=== PATIENT | female | born 1995 | race Caucasian/White ===

== ENCOUNTER 2016-04-27 23:26 | Inpatient (IN) ==
[2016-04-27] MEDS ORDERED: *HR* LORazepam 1 MG TABLET PO PRN (23:39)
[2016-04-27] MEDS ORDERED: Ibuprofen 400 MG TABLET PO PRN (23:39)
[2016-04-27] MEDS ORDERED: Mag Hydrox/Al Hydrox/Simeth 30 ML UDC PO PRN (23:39)
[2016-04-27] MEDS ORDERED: MOM Conc 10 ML UD.LIQ PO PRN (23:39)
[2016-04-27] MEDS ORDERED: traZODone 50 MG TABLET PO PRN (23:39)
[2016-04-27] MEDS ORDERED: hydrOXYzine pamoate 25 MG CAPSULE PO PRN (23:39)
[2016-04-27] MEDS ORDERED: *HR* LORazepam 2 MG/ML VIAL IM PRN (23:39)
[2016-04-27] MEDS ORDERED: Haloperidol Lactate 5 MG/ML VIAL IM PRN (23:39)
[2016-04-28] MEDS: Nicotine 21 MG PATCH.TD24 TD SCH (09:12)
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
[2016-04-29] MEDS: Nicotine 21 MG PATCH.TD24 TD SCH (09:13)
[2016-04-29] MEDS: Nicotine 2 MG GUM BC PRN ×2 (09:20→13:27)
--- NOTE | 2016-04-29 13:00 | Psychiatry Progress Note ---
Date of Encounter: 04/29/16 Time of Encounter: 12:39 Subjective Interval history: Patient seen and interviewed history and physical examination reviewed. Patient is reporting of feeling depressed and anxious. Still endorsing urges and impulses to harm and hurt herself. Unable to verbalize a safety plan. Patient has given a lot of thought about taking medication and after discussing at length about the risk benefit side effects and consequences of not taking medications patient has decided to try antidepressant. Patient is attending groups participating in activities. Encouraged to start working on a safety plan. Review of Systems Psychiatric: Reports: depression, anxiety, suicidal ideation Objective: Exam Patient orientation: Yes Person, Yes Time, Yes Place Level of alertness: Alert Patient appearance: Appropriate, Well Groomed Behavior: calm, cooperative Psychomotor activity: Normal Eye contact: Maintains Eye Contact Mood description: Depressed, Anxious Affect description: congruent with mood, full range Speech pattern: Normal rate, Normal rhythm, Normal tone Speech volume: Normal Thought process: Linear, Goal Oriented Thought content: Yes Suicidal ideation, No Homicidal ideation, No Overt delusions Perceptual disturbances: No Auditory hallucinations, No Visual hallucinations Judgment: Limited Insight: Partial Results - Vital Signs Vital Signs: Temp Pulse Resp BP 98.4 F 69 18 95/58 04/29/16 09:00 04/29/16 09:00 04/29/16 09:00 04/29/16 09:00 Assessment and Plan (1) Depression, major, single episode Current visit: Yes Status: Acute Plan: Continue hospitalization, Close observation, Suicide Precautions per unit protocol, Encourage participation in unit milieu, Group Therapy, Monitor sleep, Monitor appetite Additional Plan: After reviewing the symptoms diagnoses and treatment plan expelling the risks benefits and side effects alternatives to treatment and consequences of no treatment patient is agreeable on taking medications. We will start the patient on Celexa 10 mg daily which will be titrated and increased accordingly. Qualifiers: Active/Remission status: currently active Major depression episode severity : moderate Qualified Code(s): F32.1 - Major depressive disorder, single episode, moderate Consult Discharge Plan - Plan Referrals: [facility] [Outside] (To establish in services, you may walk -in any Sunday through Sunday from 8:00am 12:00pm or 1:00pm 4:00pm. Your case will be opened, and you will be scheduled for ongoing counseling. You will also be scheduled to see a psychiatric prescriber. Please bring your insurance card, photo ID and medication list. )
[2016-04-30 10:07] VITALS: BP 97/60
--- NOTE | 2016-04-30 11:07 | Discharge Summary ---
Date of Encounter: 04/30/16 Time of Encounter: 10:10 Diagnosis - Discharge Diagnosis (1) Depression, major, single episode Status: Acute Qualifiers: Active/Remission status: currently active Major depression episode severity : moderate Qualified Code(s): F32.1 - Major depressive disorder, single episode, moderate Medications - Discharge Medications Prescriptions: Citalopram [CeleXA] 10 mg PO DAILY #30 tablet HydrOXYzine Pamoate 25 mg PO BID PRN #60 capsule PRN Reason: Anxiety Citalopram [CeleXA] 10 mg PO DAILY #30 tablet 04/30/16 [Rx] HydrOXYzine Pamoate 25 mg PO BID PRN #60 capsule 04/30/16 [Rx] Allergies morphine Adverse Reaction (Verified 04/28/16 13:11) Vomiting Provider Date of admission: 04/27/16 23:26 Primary care physician: PCP NO Discharging clinician: Colin Grijalva Assessment and Plan - Patient/Caregiver Discharge Instructions Activity: resume usual activities as tolerated Diet: regular diet - Follow up Plan Follow up with: [facility] [Outside] (To establish in services, you may walk -in any Sunday through Sunday from 8:00am 12:00pm or 1:00pm 4:00pm. Your case will be opened, and you will be scheduled for ongoing counseling. You will also be scheduled to see a psychiatric prescriber. Please bring your insurance card, photo ID and medication list. ) Functional capacity at discharge: independent ambulation Overall status at discharge: Stable Disposition: Home, Self-Care Hospital Course Hospital course: Ms. Ledezma is a 20 year old female Was referred for hospitalization by depressive symptoms along with suicidal ideation with a plan to jump off the bridge. After reviewing the symptom diagnoses and treatment plan and extending the risk-benefit side effects and alternatives to treatment and consequences of no treatment and getting informed consent from the patient patient was started on Celexa 10 mg daily and Vistaril 25 mg twice a day when necessary for her depression and anxiety symptoms. Patient was encouraged to attend and participate in groups and activities on the unit which included supportive therapy psychoeducational cognitive restructuring and stress management groups. The patient did attend groups and learn coping skills and worked on a safety plan. With the above interventions patient started noticing improvement in her mood and hopelessness helplessness and suicidal ideation subsided. She became more future oriented positive and hopeful. She tolerated medications fairly well did not report any side effects. Her sleep and appetite improved overall patient's discharge condition was stable. - Time Spent with Patient Total time spent providing and/or coordinating discharge services: Less than 30 minutes Quality - Multiple Antipsychotics Patient discharged on 2 or more antipsychotic medications: No Procedures - Procedures Procedures: Medication Management, Crisis Stabilization, Supportive Therapy, Group Therapy, Psychoeducational Therapy Mental Status Exam - Mental Status Exam Patient orientation: Yes Person, Yes Time, Yes Place Level of alertness: Alert Patient appearance: Appropriate, Well Groomed Behavior: calm, cooperative Psychomotor activity: Normal Eye contact: Maintains Eye Contact Mood description: Euthymic/stable Affect description: congruent with mood, full range Speech pattern: Normal rate, Normal rhythm, Normal tone Speech Volume: Normal Thought process: Linear, Goal Oriented Thought Content: No Suicidal ideation, No Homicidal ideation, No Overt delusions Perceptual Disturbances: No Auditory hallucinations, No Visual hallucinations Judgment: Good Insight: Partial
== END 2016-04-30 13:15 | disposition home or self-care (01) | DRG 751 ==
LOC: 1ANU 23:26 → SUATTDRO 23:26 → 1ANU 04-29 09:00
PROVIDERS: ADMIT Psychiatry & Neurology Psychiatry; ATTEND Psychiatry & Neurology Psychiatry